=== PATIENT | female | born 1995 | race African-American/Black ===

== ENCOUNTER 2018-09-16 21:53 | Observation (INO) | payer MEDICAID | END 2018-09-16 23:00 | disposition home or self-care (01) | LOC: ER 21:53 → 8 EST LDRP 22:08 | PROVIDERS: ADMIT Obstetrics & Gynecology; ATTEND Obstetrics & Gynecology | DX: O36.8130 Decreased fetal movements, third trimester, not applicable or unspecified (principal); O26.892 Other specified pregnancy related conditions, second trimester; R10.9 Unspecified abdominal pain; M54.9 Dorsalgia, unspecified; Z3A.23 23 weeks gestation of pregnancy | CPT/HCPCS: 99281; G0378 ==